=== PATIENT | male | born 1985 | race Caucasian/White ===

== ENCOUNTER 2020-12-10 10:02 | Day surgery (SDC) | payer BC ==
[2020-12-10] VITALS (10 sets, daily range): BP systolic 97–114; BP diastolic 65–76; PULSE 56–70; TEMP 98.1
[~2020-12-10] VITALS: Ht 165.1 cm; Wt 85.4 kg
[2020-12-10 11:05] LABS: HEMATOCRIT 47.6 % (42.0-52.0); HEMOGLOBIN 16.5 g/dl (13.5-18.0); MEAN CELL VOLUME 81 fl (80.0-100.0); MEAN CORPUSCULAR HEMOGLOBIN 28 pg (27.0-31.0); MEAN CORPUSCULAR HGB CONC 35 g/dl (33.0-37.0); MEAN PLATELET VOLUME 9.2 fl (7.4-10.4); PLATELET COUNT 247 K/mm3 (130-400); RED BLOOD COUNT 5.85 M/mm3 (4.20-5.60); REDCELL DISTRIBUTION WIDTH-CV 12.8 % (11.5-14.5)
[2020-12-10 11:11] LABS: INR 1.1 (0.8-3.0); PROTHROMBIN TIME 12.1 SECONDS (9.7-12.8)
[2020-12-10] MEDS ORDERED: ASPIRIN E.C. 8181 MG PO (11:11)
[2020-12-10] MEDS ORDERED: TOPROL XL 50MG50 MG PO (11:12)
[2020-12-10] MEDS ORDERED: PRILOTC PO (11:12)
[2020-12-10] MEDS ORDERED: KLONOPIN 0.5MG0.5 MG PO (11:13)
[2020-12-10 11:16] LABS: CALCIUM 9.6 mg/dL (8.4-10.2); CREATININE, serum 0.83 (0.66-1.25); POTASSIUM 4.4 mmol/L (3.4-5.0)
--- NOTE | 2020-12-10 12:59 | NUR ---
Pt is back from laboratory sampler, pt is relaxed, TR band in place, cms intact distal. SR SB on monitor, telemetry employed. Pt and updated on poc. call light in reach [facility].
--- NOTE | 2020-12-10 16:15 | NUR ---
Pt getting dressed and is ready for discharge. TR band was deflated with no problem, site dressed with bandaid, folded 2x2 and coban. cms remains intact distal. PT has been up and is ambulatory with steady gait. I have reviewed dc and fu instructions with pt and . pt and verbalized understanding. IV is dc'd with cath intact, dressing applied.. pt is escorted to exit via wheelchair.
== END 2020-12-10 17:20 | disposition home or self-care (01) ==
LOC: COL.CAR 10:02
PROVIDERS: Internal Medicine Cardiovascular Disease
DX: R07.89 Other chest pain (principal); R94.39 Abnormal result of other cardiovascular function study; Z20.822 Contact with and (suspected) exposure to COVID-19
CPT/HCPCS: C1769; J1644; J2250; J3010

== ENCOUNTER → 2021-02-10 | Outpatient (CLI) | payer BC ==
[~2021-02-10] MED LIST: ASPIRIN E.C. 8181 MG PO; KLONOPIN 0.5MG0.5 MG PO; PRILOTC PO; TOPROL XL 50MG50 MG PO
== END ==
LOC: COL.PUL 12:56
DX: R07.9 Chest pain, unspecified (principal)
CPT/HCPCS: J7674